=== PATIENT | male | born 1965 | race Caucasian/White ===

== ENCOUNTER 2019-04-10 05:43 | Emergency (ER) | payer SELFPAY ==
[2019-04-10 05:44] VITALS: BP 146/92; PULSE 107; RESP 18; TEMP 36.6; O2SAT 98; BMI 19.0
--- NOTE | 2019-04-10 05:56 | ED.DCSUM_ITS ---
- ER Visit Summary Date of Service: 04/10/19 Chief Complaint: Nausea and vomiting History of Present Illness: The patient is a 54 M reports nausea and vomiting since bedtime last night. He denies diarrhea. Denies fever or chills. He states he is vomiting up stomach acid. He has had increased stress recently and is not sure if that may be contributing. Patient has no sniffing a past medical history no prior abdominal surgeries. He does not take any medication on a regular basis. Physical Examination: Vital signs significant for heart rate of 107, otherwise unremarkable. Patient sitting upright in bed no acute distress. He is nontoxic appearing. Heart is slightly tachycardic and regular. Lung sounds clear. Abdomen is soft and nontender. Hypoactive bowel sounds are noted. Test Results: CBC was normal white count 6.2 with slight left shift of 87% n eutrophils. Glucose is 124. BUN is 20. Emergency Department Course and Treatment: Patient is given Zofran and IV fluids. On repeat evaluation he does feel improved. He said no further vomiting here. He will be discharged with Zofran at home. Treatment Plan: [] Disposition: Discharge Impression: Vomiting, improved This note was generated with [employer] dictation software. It may contain incorrect words, spelling, and punctuation that were not noted in review of the chart prior to signing ED Disposition - Plan for ED Patient: Disposition: Home or Assisted Living Instructions: ED Nausea Vomiting Prescriptions: Ondansetron [Zofran Odt] 4 mg PO Q8H PRN PRN #10 tablet PRN Reason: Nausea Referrals: NOT,DEFINED [NON-STAFF] -
[2019-04-10] MEDS: 0.9% Normal Saline 1,000 ML 1000 ML IV (05:59)
[2019-04-10] MEDS: Ondansetron 4 MG/2 ML Vial IV (05:59)
[2019-04-10 06:22] LABS: Absolute Neutrophil Count 5.5 X10^3/uL (2.0-7.7); Basophil# 0.02 X10^3/uL; Basophil% 0.3 % (0-1); Hematocrit 42.3 % (40-54); Hemoglobin 14.4 g/dl (13.0-16.5); Mean Corpuscular Hgb 31.9 pg (27.0-32.0); Mean Corpuscular Volume 93.6 fL (80-94); Mean Platelet Vol. 10.5 fl (6.2-12.0); Monocyte# 0.25 X10^3/uL; Neutrophil # 5.46 X10^3/uL (2.7-7.7); Neutrophil % 87.7 % (47-70); Platelet Count 296 K/mm3 (150-450); RBC Distribution Width SD 40.5 fl (35.1-43.9); Red Blood Count 4.52 M/mm3 (4.6-6.2); White Blood Count 6.2 K/mm3 (4.4-11.0)
[2019-04-10 06:24] LABS: Anion Gap 9 (5-15); BUN 20 mg/dL (7-18); BUN/Creat Ratio 27.9 RATIO (10-20); Calcium,Total 9.2 mg/dL (8.5-10.1); Chloride 99 mmol/L (98-107); Creatinine, Serum 0.72 mg/dL (0.70-1.30); Differential Indicated SCAN CRITERIA MET; EST Glomerular Filtration Rate 122 mL/min (>60); Est Glom Filt Rate - Afr Amer 148 mL/min (>60); Estimated Creatinine Clearance 114.24 ml/min; Glucose 124 mg/dL (74-106); POSITIVE COUNT NO; POSITIVE DIFFERENTIAL YES; POSITIVE MORPHOLOGY NO; Potassium 4.3 mmol/L (3.5-5.1); Sodium Level 135 mmol/L (136-145)
[2019-04-10] MEDS: Ondansetron ODT 4 MG Tablet PO (06:43)
[2019-04-10 06:44] VITALS: BP 157/83; PULSE 99; RESP 16; O2SAT 98
[2019-04-10 06:53] LABS: Differential Comment SCANNED
== END 2019-04-10 06:45 | disposition home or self-care (01) ==
PROVIDERS: Emergency Provider Emergency Medicine
DX: R11.2 Nausea with vomiting, unspecified (principal)
CPT/HCPCS: 80048; 85025; 96361; 96374; 99284; J7030; J2405